=== PATIENT | female | born 1995 | race African-American/Black ===

== ENCOUNTER 2016-09-29 20:51 | Emergency (ER) | payer OTHER ==
[~2016-09-29 20:51] MED LIST: AMOXICILLIN PO
== END 2016-09-30 00:21 | disposition home or self-care (01) ==
LOC: CED 20:51 → CFTX 22:16
DX: S40.012A Contusion of left shoulder, initial encounter (principal); S90.512A Abrasion, left ankle, initial encounter; S30.810A Abrasion of lower back and pelvis, initial encounter; F17.200 Nicotine dependence, unspecified, uncomplicated; V00.831A Fall from motorized mobility scooter, initial encounter
CPT/HCPCS: 84703; 99283